=== PATIENT | female | born 1990 | race Two or more races ===

== ENCOUNTER 2025-01-11 21:40 | Emergency (ER) | payer SELFPAY | END 2025-01-11 21:41 | disposition left against medical advice (07) | LOC: EMS 21:41 | DX: R10.9 Unspecified abdominal pain (principal); R11.10 Vomiting, unspecified; Z53.21 Procedure and treatment not carried out due to patient leaving prior to being seen by health care provider | CPT/HCPCS: 71045; 93005 ==